=== PATIENT | female | born 1940 ===

== ENCOUNTER → 2022-06-09 | Outpatient (CLI) | payer OTHER ==
[2022-06-09 11:59] LABS: CHOL/HDL RATIO 1.6; Cholesterol 156 mg/dL (50-200); HDL Cholesterol 95 mg/dL (>39); LDL/HDL RATIO 0.5; Low Density Lipoprotein Chol 45 mg/dL (0-110); Triglycerides 79 mg/dL (30-160); Very Low Density Lipoprot Chol 15 mg/dL (6-32)
== END | disposition home or self-care (01) ==
LOC: LAB SHORT 11:28 → LAB 11:28
PROVIDERS: Student in an Organized Health Care Education/Training Program
DX: E78.5 Hyperlipidemia, unspecified (principal)
CPT/HCPCS: 80061

== ENCOUNTER → 2023-02-21 | Outpatient (CLI) | payer OTHER ==
[2023-02-21 18:44] LABS: Albumin, Blood 3.2 g/dL (3.4-5.0); Albumin/Globulin Ratio 1.2 (0.8-1.8); Alk Phos 103 U/L (50-136); Anion Gap 7 mmol/L (6-16); Aspartate Aminotrans (AST/SGOT 22 U/L (12-37); Bilirubin, Direct <0.1 mg/dL (0.0-0.3); Bilirubin, Indirect Unable to Calculate mg/dL (0.1-0.7); Bilirubin, Total 0.3 mg/dL (0.1-1.0); Blood Urea Nitrogen 24 mg/dL (8-24); CO2, Blood 28 mmol/L (21-32); Calcium, Blood 9.2 mg/dL (8.5-10.1); Chloride, Blood 109 mmol/L (98-108); Globulin, Blood 2.7 g/dL (2.2-4.0); Glucose, Blood 100 mg/dL (70-99); Potassium, Blood 4.6 mmol/L (3.5-5.5); Sodium, Blood 144 mmol/L (136-145); Total Protein, Blood 5.9 g/dL (6.4-8.2)
[2023-02-21 19:07] LABS: Alanine Aminotransfer (ALT/SGP 16 U/L (12-78); Bun/Creatinine Ratio 26.6 (12.0-20.0); Glomerular Filtration Rate 63 (60-)
== END | disposition home or self-care (01) ==
LOC: LAB SHORT 11:52 → LAB 11:52
PROVIDERS: Internal Medicine Hematology & Oncology
DX: C18.9 Malignant neoplasm of colon, unspecified (principal); R10.9 Unspecified abdominal pain
CPT/HCPCS: 80053; 82248; 82378

== ENCOUNTER → 2023-09-22 | Outpatient (CLI) | payer OTHER ==
[2023-09-23 14:21] LABS: Albumin, Blood 3.5 g/dL (3.4-5.0); Albumin/Globulin Ratio 1.2 (0.8-1.8); Bilirubin, Total 0.4 mg/dL (0.1-1.0); Bun/Creatinine Ratio 32.9 (12.0-20.0); Calcium, Blood 9.3 mg/dL (8.5-10.1); Creatinine, Blood 0.88 mg/dL (0.40-1.00); Globulin, Blood 2.8 g/dL (2.2-4.0); Phosphorus, Blood 3.6 mg/dL (2.5-4.9); Total Protein, Blood 6.3 g/dL (6.4-8.2)
== END ==
LOC: LAB SHORT 09:55 → LAB 09:55
PROVIDERS: Internal Medicine Hematology & Oncology
DX: R10.84 Generalized abdominal pain (principal); Z85.038 Personal history of other malignant neoplasm of large intestine
CPT/HCPCS: 80053; 82378; 84100

== ENCOUNTER → 2023-09-30 | Outpatient (CLI) | payer OTHER ==
[2023-09-30 11:20] LABS: BASOPHILS ABSOLUTE AUTO 0.04 K/mm3 (0.00-0.23); BASOPHILS PERCENT AUTO 1 % (0-2); EOSINOPHILS ABSOLUTE AUTO 0.15 K/mm3 (0.00-0.68); EOSINOPHILS PERCENT AUTO 2 % (0-6); Hematocrit 42.3 % (33.0-51.0); Hemoglobin 13.6 g/dL (11.5-16.0); IMMATURE GRAN ABSOLUTE AUTO 0.03 K/mm3 (0.00-0.10); IMMATURE GRAN PERCENT AUTO 0 % (0-1); LYMPHOCYTES ABSOLUTE AUTO 1.69 K/mm3 (0.84-5.20); LYMPHOCYTES PERCENT AUTO 19 % (21-46); MONOCYTES ABSOLUTE AUTO 0.49 K/mm3 (0.16-1.47); MONOCYTES PERCENT AUTO 6 % (4-13); Mean Corpuscular HGB 28.8 pg (26.0-34.0); Mean Corpuscular HGB Conc 32.2 g/dL (31.5-36.5); Mean Corpuscular Volume 90 fL (80-100); Mean Platelet Volume 10.1 fL (9.1-12.4); NEUTROPHILS ABSOLUTE AUTO 6.36 K/mm3 (1.96-9.15); NEUTROPHILS PERCENT AUTO 73 % (41-73); Platelet Count 188 K/mm3 (150-400); RDW Coefficient Variation 13.3 % (11.7-14.2); RDW Standard Deviation 43.8 fL (35.1-46.3); Red Blood Cell Count 4.72 M/mm3 (3.80-5.20); White Blood Cell Count 8.76 K/mm3 (4.00-11.30)
[2023-09-30 12:05] LABS: Albumin/Globulin Ratio 0.9 (0.8-1.8); Bilirubin, Total 0.4 mg/dL (0.1-1.0); Bun/Creatinine Ratio 24.7 (12.0-20.0); Calcium, Blood 8.8 mg/dL (8.5-10.1); Creatinine, Blood 0.77 mg/dL (0.40-1.00); Globulin, Blood 3.5 g/dL (2.2-4.0); Potassium, Blood 4.3 mmol/L (3.5-5.5); Thyroid Stimulating Hormone 4.192 uIU/mL (0.360-4.800); Total Protein, Blood 6.5 g/dL (6.4-8.2)
== END | disposition home or self-care (01) ==
LOC: LAB SHORT 10:53 → LAB 10:53
PROVIDERS: Physician Assistant
DX: Z00.01 Encounter for general adult medical examination with abnormal findings (principal); E03.9 Hypothyroidism, unspecified
CPT/HCPCS: 36415; 80053; 84443; 85025

== ENCOUNTER 2024-08-24 12:31 | Emergency (ER) | payer OTHER ==
[~2024-08-24] VITALS: Ht 165.1 cm; Wt 68.0 kg
[2024-08-24] MEDS ORDERED: FentaNYL Citrate 50 MCG/ML 2 ML Injection IV ONE (13:50)
[2024-08-24] MEDS ORDERED: Ondansetron HCl 2 MG / ML 2ML Vial IV ONE ×2 (13:50→15:00)
[2024-08-24 13:52] LABS: Source, Urine Clean Catch
[2024-08-24 13:58] LABS: Appearance, Urine Clear (Clear); Bilirubin, Urine Neg (Neg); Blood, Urine 2+ (Neg); Color, Urine Yellow (P-Yellow); Glucose Qualitative, Urine Neg (Neg); Ketones, Urine 1+ (Neg); Leukocyte Esterase, Urine Neg (Neg); Nitrite, Urine Neg (Neg); Protein, Urine 2+ (Neg); Urobilinogen, Urine NORM (Normal)
[2024-08-24 14:07] LABS: White Blood Cells, Urine 0-2 /hpf (0-5)
[2024-08-24 14:08] LABS: Bacteria Mod /hpf; Squamous Epithelial Cells Few /hpf (Few)
[2024-08-24] MEDS ORDERED: Ondansetron HCl 2 MG / ML 2ML Vial ONE (14:21)
[2024-08-24 14:30] LABS: BASOPHILS ABSOLUTE AUTO 0.04 K/mm3 (0.00-0.23); BASOPHILS PERCENT AUTO 0 % (0-2); EOSINOPHILS ABSOLUTE AUTO 0.02 K/mm3 (0.00-0.68); EOSINOPHILS PERCENT AUTO 0 % (0-6); Hematocrit 41.1 % (33.0-51.0); Hemoglobin 13.4 g/dL (11.5-16.0); IMMATURE GRAN ABSOLUTE AUTO 0.18 K/mm3 (0.00-0.10); IMMATURE GRAN PERCENT AUTO 1 % (0-1); LYMPHOCYTES ABSOLUTE AUTO 0.83 K/mm3 (0.84-5.20); LYMPHOCYTES PERCENT AUTO 5 % (21-46); MONOCYTES ABSOLUTE AUTO 0.55 K/mm3 (0.16-1.47); MONOCYTES PERCENT AUTO 4 % (4-13); Mean Corpuscular HGB 28.9 pg (26.0-34.0); Mean Corpuscular HGB Conc 32.6 g/dL (31.5-36.5); Mean Corpuscular Volume 89 fL (80-100); NEUTROPHILS ABSOLUTE AUTO 13.82 K/mm3 (1.96-9.15); NEUTROPHILS PERCENT AUTO 89 % (41-73); RDW Coefficient Variation 13.2 % (11.7-14.2); RDW Standard Deviation 42.9 fL (35.1-46.3); Red Blood Cell Count 4.64 M/mm3 (3.80-5.20); White Blood Cell Count 15.44 K/mm3 (4.00-11.30)
[2024-08-24 14:31] LABS: Albumin, Blood 3.1 g/dL (3.4-5.0); Albumin/Globulin Ratio 0.9 (0.8-1.8); Bilirubin, Total 0.3 mg/dL (0.1-1.0); Bun/Creatinine Ratio 31.2 (12.0-20.0); Calcium, Blood 9.2 mg/dL (8.5-10.1); Creatinine, Blood 0.61 mg/dL (0.40-1.00); Globulin, Blood 3.4 g/dL (2.2-4.0); Potassium, Blood 3.9 mmol/L (3.5-5.5); Total Protein, Blood 6.5 g/dL (6.4-8.2)
[2024-08-24] MEDS ORDERED: EUTHYROX50 MC1 PO (14:53)
[2024-08-24] MEDS ORDERED: CITALOPRAM HBR10 MG (14:54)
[2024-08-24 14:55] LABS: Mean Platelet Volume 11.2 fL (9.1-12.4); Platelet Count 179 K/mm3 (150-400)
[2024-08-24 15:30] VITALS: BP 182/80
[2024-08-24] MEDS ORDERED: ONDA4ODT MM (15:43)
== END 2024-08-24 15:51 | disposition home or self-care (01) ==
LOC: ER 12:31
PROVIDERS: Emergency Medicine
DX: S01.81XA Laceration without foreign body of other part of head, initial encounter (principal); S63.501A Unspecified sprain of right wrist, initial encounter; S16.1XXA Strain of muscle, fascia and tendon at neck level, initial encounter; R42 Dizziness and giddiness; W18.30XA Fall on same level, unspecified, initial encounter; Z88.0 Allergy status to penicillin
CPT/HCPCS: 12011; 70450; 71045; 72125; 73110; 80053; 81001; 84484; 85025; 87077; 87086; 87186; 93005; 93010; 96374-59; 96375-59; 99284-25; J2405; J3010

== ENCOUNTER → 2024-09-04 | Outpatient (CLI) | payer OTHER ==
[~2024-09-04] MED LIST: CITALOPRAM HBR10 MG; EUTHYROX50 MC1 PO; ONDA4ODT MM
== END ==
LOC: LAB SHORT 17:01 → LAB 17:01
DX: N39.0 Urinary tract infection, site not specified (principal)
CPT/HCPCS: 87077; 87086; 87186